=== PATIENT | female | born 1975 | race African-American/Black ===

== ENCOUNTER 2016-12-14 19:21 | Emergency (ER) | payer OTHER ==
--- NOTE | ~2016-12-14 | EKG ---
PATIENT: GABE MADRID UNIT #: [id number] Ventricular Rate: 84 BPM Atrial Rate: 84 BPM P-R Interval: 162 ms QRS Duration: 84 ms Q-T Interval: 392 ms QTC Calculation(Bezet): 463 ms P [place]: 39 degrees Calculated R [place]: 4 degrees Calculated T [place]: 9 degrees Diagnosis Line: Normal sinus rhythm Diagnosis Line: Minimal voltage criteria for LVH, may be normal Diagnosis Line: variant Diagnosis Line: Borderline ECG Diagnosis Line: When compared with ECG of 25-MAR-2013 11:36, Diagnosis Line: No significant change was found Diagnosis Line: Confirmed by GALE DAVID MD ([id number]) on Diagnosis Line: 12/15/2016 4:39:11 PM INTERPRETING MD: VINNIE
--- NOTE | ~2016-12-14 | CR63 ---
[facility] A Service of [facility] RADIOLOGY TEXT RESULTS PATIENT: GABE MADRID LOCATION: [place] : [birth year] UNIT #: [id number] AGE: [address]: Luis Alfredo Jorge MD SEX: F ORDER DR: [id number] [facility] [address] [place], [place] [address] [id number] MR#: [id number] Acc #: [id number] NAME: GABE MADRID : 1975 SEX: F STUDY DATE/TIME: 12/14/2016 20:21 UNIT: [facility] ROOM: STUDY DESCRIPTION: CR Chest 2 View Attending Physician: Luis Alfredo Jorge M.D. Ordering Physician: Vidhya Gallego M.D. Primary Care Physician: Rebecca Stone M.D. MEDICAL IMAGING REPORT This report is preliminary unless electronic signature is present EXAM Chest 2 views dated 12/14/2016. COMPARISON Single view chest dated 03/25/2013 HISTORY Cough, congestion since yesterday. Chest pain 1 hour ago. FINDINGS Single view of the chest was obtained. PA and lateral examination of the chest upright shows a good expansion of the parenchyma with a normal distribution of the pulmonary vascularity. There is no indication of congestion, effusion, infiltrate, tumor, or nodular density. The pleural reflections and diaphragmatic contours are normal. The cardiac silhouette and mediastinal anatomy is within normal limits. IMPRESSION Normal chest. Dictated by... Crystal Casey M.D. THIS IS AN ELECTRONICALLY VERIFIED REPORT Crystal Casey M.D. at 12/15/2016 9:05 PM CPR/cmm TD: 12/15/2016 08:37 [facility] A Service [facility] RADIOLOGY TEXT RESULTS PATIENT: GABE MADRID LOCATION: [place] : [birth year] UNIT #: [id number] AGE: [address]: Luis Alfredo Jorge MD SEX: F ORDER DR: JOB #: [id number] MEDICAL IMAGING REPORT Page 1 of 1 COPY
[~2016-12-14 19:21] MED LIST: ASPIRIN81 M2 PO; KETOPROFEN PO; ULTRAM PO
[2016-12-14 20:02] LABS: BASOPHIL# 0.1 X10e3 (0-0.3); EOSINOPHIL# 0.3 X10e3 (0-0.7); EOSINOPHIL% 4.4 % (0.0-7.0); HEMATOCRIT 37.8 % (35.0-45.0); HEMOGLOBIN 12.5 gm/dL (12.0-16.0); LYMPHOCYTE% 34.9 % (17.0-45.0); MEAN CELL VOLUME 89.4 FL (83-96); MEAN CORPUSCULAR HEMOGLOBIN 29.5 PG (28-34); MEAN PLATELET VOLUME 7.3 FL (6.5-11.5); MONOCYTE# 0.6 X10e3 (0-1.0); MONOCYTE% 9.7 % (3.0-12.0); NEUTROPHIL# 2.9 X10e3 (1.5-7.1); PLATELET COUNT 261 X10e3 (140-420); RED BLOOD COUNT 4.23 X10e (3.90-5.30); RED CELL DISTRIBUTION WIDTH 13.9 % (11.0-15.5); WHITE BLOOD COUNT 5.8 X10e3 (4.0-10.5)
[2016-12-14 20:03] LABS: DIFF IND NO
[2016-12-14 20:17] LABS: POC - CKMB <1.0 ng/mL (0.0-7.9); POC - TROPONIN <0.05 ng/mL (<=0.05)
[2016-12-14 20:20] LABS: ALBUMIN SERUM 3.8 g/dL (3.5-5.0); ALKALINE PHOSPHATASE 47 U/L (32-92); ALT (SGPT) 31 U/L (10-40); AST (SGOT) 27 U/L (10-42); BILIRUBIN,TOTAL 0.7 mg/dL (0.2-2.0); BLOOD UREA NITROGEN 15 mg/dL (9-23); BUN/CREATININE RATIO 21.42; CALCIUM SERUM 8.7 mg/dL (8.4-10.2); CARBON DIOXIDE 25 mmol/L (22-31); CHLORIDE 106 mmol/L (100-111); CREATININE SERUM 0.7 mg/dL (0.6-1.4); GLUCOSE FASTING 94 mg/dL (70-110); PROTEIN TOTAL SERUM 7.2 g/dL (6.0-8.3); SODIUM 137 mmol/L (135-145)
[2016-12-14 20:22] LABS: BILIRUBIN, DIRECT <0.1 mg/dL (0.0-0.2); BILIRUBIN,INDIRECT 0.6 mg/dL (0.0-0.9)
[2016-12-14 20:23] LABS: PARTIAL THROMBOPLASTIN TIME 27.5 SECONDS (23.5-31.3); PROTHROMBIN TIME (PATIENT) 11.2 SECONDS (10.0-11.7)
[2016-12-14 21:06] LABS: URINE SOURCE CLEAN CATCH
[2016-12-14 21:17] LABS: URINE APPEARANCE CLEAR; URINE BILIRUBIN NEG (NEG); URINE BLOOD NEG (NEG); URINE COLOR YELLOW; URINE GLUCOSE NEG (NEG); URINE KETONE NEG (NEG); URINE LEUKOCYTE ESTERASE NEG (NEG); URINE NITRATE NEG (NEG); URINE PH 6.5 (5-8); URINE PROTEIN NEG (NEG); URINE SPECIFIC GRAVITY 1.028 (1.003-1.035)
[2016-12-14 21:30] LABS: CULTURE INDICATED? NO
[2016-12-14 21:31] LABS: AMPHETAMINE NEG (NEG); BARBITURATES NEG (NEG); BENZODIAZEPINES NEG (NEG); COCAINE NEG (NEG); MARIJUANA NEG (NEG); OPIATES NEG (NEG); TRICYCLIC ANTIDEPRESSANTS NEG (NEG); U METHADONE NEG (NEG)
[2016-12-14 22:20] LABS: POC - CKMB <1.0 ng/mL (0.0-7.9); POC - TROPONIN <0.05 ng/mL (<=0.05)
== END 2016-12-14 22:45 | disposition home or self-care (01) ==
LOC: CED 19:21
PROVIDERS: Emergency Medicine; Student in an Organized Health Care Education/Training Program
DX: R07.89 Other chest pain (principal); R10.13 Epigastric pain; Z79.82 Long term (current) use of aspirin; Z79.899 Other long term (current) drug therapy
CPT/HCPCS: 36415; 71020; 80048; 80076; 80307; 81003; 82553; 83880; 84484; 84703; 85025; 85610; 85730; 93005; 99285